=== PATIENT | female | born 1965 | race Hispanic/Latino ===

== ENCOUNTER → 2025-02-15 | Outpatient (CLI) | payer OTHER ==
--- NOTE | 2025-02-16 07:46 | HMCIMG ---
EXAM: CT Cardiac calcium scoring. CLINICAL HISTORY: Screening. TECHNIQUE: Thin collimated axial CT cardiac images were obtained. A CT scan is done according to ALARA (As Low As Reasonably Achievable). CONTRAST: None. COMPARISON: None provided. FINDINGS: Calcium Score: VESSEL Number of lesions Volume mm3 Equi. Mass/mg Calcium score LM 5 112.3 - 148.0 LAD 5 61.4 - 93.9 LCX 1 0.5 - 1.1 RCA 1 9.0 - 9.6 Total 12 183.2 - 252.5 IMPRESSION: The total calcium score is 252.5. 95th percentile. /[place]
== END | disposition home or self-care (01) ==
LOC: RAH 13:28
PROVIDERS: ATTEND Internal Medicine Cardiovascular Disease
DX: Z13.6 Encounter for screening for cardiovascular disorders (principal)
CPT/HCPCS: 75571